=== PATIENT | male | born 1955 | race Caucasian/White ===

== ENCOUNTER 2016-09-18 10:36 | Day surgery (SDC) | payer OTHER ==
[2016-09-11 16:34] VITALS: BMI 25.7
[2016-09-18] MEDS ORDERED: ceFAZolin SODIUM 1 GM VIAL ONE (11:34)
[2016-09-18] MEDS ORDERED: LIDOCAINE 1%/EPI 1:100000 (50 ML MULTI DOSE VIAL) ONE (12:19)
[2016-09-18] MEDS ORDERED: BUPIVACAINE HCL/PF 0.5% (5MG/ML) 10 ML VIAL ONE (12:19)
[2016-09-18] MEDS ORDERED: BACITRACIN 30 GM TUBE TOPICAL OINTMENT ONE (12:24)
[2016-09-18] MEDS ORDERED: MIDAZOLAM HCL 2 MG/2 ML SINGLE DOSE VIAL ONE ×2 (12:29)
[2016-09-18] MEDS ORDERED: LIDOCAINE HCL/PF 2% SDV 5ML VIAL ONE (12:29)
[2016-09-18] MEDS ORDERED: PROPOFOL 20 ML ONE ×2 (12:29→12:40)
[2016-09-18] MEDS ORDERED: ceFAZolin SODIUM 1 GM VIAL IVPB ONE (13:00)
[2016-09-18] MEDS ORDERED: ePHEDrine SULFATE 50 MG/1 ML AMPULE ONE (14:08)
[2016-09-18] MEDS ORDERED: BACITRACIN 30 GM TUBE TOPICAL OINTMENT TP ONE (14:30)
[2016-09-18] MEDS ORDERED: ONDANSETRON 4 MG/2 ML VIAL ONE (15:02)
[2016-09-18] MEDS ORDERED: METHOCARBAMOL 750 MG TABLET PO PRN (15:09)
[2016-09-18] MEDS ORDERED: HYDROCHLOROTHIAZIDE PO SCH (15:15)
[2016-09-18] MEDS ORDERED: [UNRECOGNIZED DRUG - OTHER] PO SCH (15:15)
[2016-09-18] MEDS ORDERED: FELODIPINE 10 MG PO SCH (15:15)
[2016-09-18] MEDS ORDERED: QUINAPRIL PO SCH (15:15)
[2016-09-18] MEDS ORDERED: OXYCODONE/APAP 5/325MG COMBO TABLET PO PRN (15:19)
[2016-09-18] MEDS ORDERED: oxyCODONE HCL 5 MG TABLET PO PRN (15:30)
[2016-09-18] MEDS ORDERED: PROMETHAZINE HCL 25 MG/1 ML VIAL IVPUSH PRN (15:30)
[2016-09-18] MEDS ORDERED: ONDANSETRON 4 MG/2 ML VIAL IVPUSH PRN (15:30)
[2016-09-18] MEDS: GABAPENTIN 100 MG CAPSULE (FP) PO SCH ×2 (17:20→22:01)
--- NOTE | 2016-09-18 18:16 | HP ---
DATE OF ADMISSION: 09/18/2016 REASON FOR SURGERY TODAY: Open wound of the right 5th finger, postsurgical loss of skin. Patient to undergo debridement, flap coverage of exposed flexor tendons and skin grafting scheduled at [facility] September 18, 2016. PAST HISTORY: As per the patient, he had suffered from Dupuytren's contracture related to his right hand, involving his 5th finger and palm. He underwent 1st surgery approximately 4 to 5 years ago. At that time, he had a release of the contracture and, as per Los, it was successful. His finger had straightened up and he was able to use it. Dupuytren's condition then reoccurred and he started developing the same contracture in his finger. He underwent surgery on July 18, 2016, by Dr. Mckeon. Postoperatively he suffered complication, there was loss of skin at the level of the proximal finger, with exposure of his flexor tendons. He was then referred to the wound clinic, where he had undergone significant wound care including hyperbaric oxygen, which was permitted for a short time period. Patient is now here for closure and reconstruction of his 5th finger. His past history is relevant for the following condition: Fifteen years ago he had an CA and has been on medications. He does have history of hypertension, hypercholesterolemia, and diabetes. History of surgery is a quadruple bypass 16 years ago and surgery for Dupuytren's contraction as mentioned above. SOCIAL HISTORY: He is a former smoker. He has just recently stopped smoking since the complication occurred and has not taken cigarette since then. No history of alcohol abuse or drug usage. PHYSICAL EXAMINATION: General: A 60-year-old male, apparently in good health, not in pain, and is afebrile. Eyes: Pupils are equal and reacting. Neck: No lymphadenopathy. Chest: Good air entry. Abdomen: Soft and nontender. Extremities: Local examination of the 5th finger shows a 2.5 x 1.8 cm open wound located on the ulnar aspect of his 5th finger with exposed tendons which are showing some amount of granulation tissue since hyperbaric treatment had been started. The open wound is full thickness, extends down to the level of his phalanx. At the moment, there is no induration, no erythema, no foul odor. Previous cultures done in the wound clinic are positive for multiple organisms. PLAN OF CARE: Debridement of tissues including the granulation tissue followed by coverage of the tendon using a local flap from the finger, split-thickness skin grafting for the donor site. This is planned under IV sedation. KOURTNEY KEN M.D. [id number]
[2016-09-18] MEDS: oxyCODONE HCL 5 MG TABLET PO PRN (20:41)
[2016-09-18] MEDS: ACETAMINOPHEN 325 MG TABLET (FP) PO PRN (20:42)
[2016-09-18] MEDS ORDERED: CEFAZOLIN 1 GM/D5W 50 ML IVPB SCH (21:00)
[2016-09-18] MEDS: METOPROLOL SUCCINATE 50 MG TAB.SR.24H (FP) PO SCH (22:01)
[2016-09-18] MEDS: CEFAZOLIN (PRE-DOCKED) 50 ML IVPB SCH (22:02)
[2016-09-19] MEDS: oxyCODONE HCL 5 MG TABLET PO PRN ×3 (00:34→13:27)
[2016-09-19] MEDS: ACETAMINOPHEN 325 MG TABLET (FP) PO PRN ×3 (00:34→13:28)
[2016-09-19] MEDS: CEFAZOLIN (PRE-DOCKED) 50 ML IVPB SCH ×2 (03:50→09:33)
[2016-09-19 06:12] VITALS: BP 147/89; PULSE 71; TEMP 98.3
[2016-09-19] MEDS: METOPROLOL SUCCINATE 50 MG TAB.SR.24H (FP) PO SCH (06:16)
[2016-09-19] MEDS ORDERED: sitaGLIPtin PHOSPHATE 50 MG TABLET PO SCH (07:00)
--- NOTE | 2016-09-19 09:04 | PN ---
Progress Note (short form) - Note Progress Note: Post op day#1.S/P Right 5th finger tendon repair under [place] uneventful.Patient stable.No any anesthesia related problem.Patient dc from the anesthesia care.
[2016-09-19] MEDS: GABAPENTIN 100 MG CAPSULE (FP) PO SCH (09:33)
[2016-09-19] MEDS ORDERED: amLODIPine BESYLATE 5 MG TABLET (FP) PO SCH (10:00)
--- NOTE | 2016-09-19 13:56 | OP ---
DATE OF OPERATION: 09/18/2016 PREOPERATIVE DIAGNOSIS: 1. Open wound, right 5th finger. 2. Exposed flexor tendons. 3. He is status post Dupuytrens release contracture with skin necrosis. PROCEDURES DONE: 1. Excisional debridement of the skin, subcutaneous tissue, granulation tissue. 2. Reconstruction of the 5th finger with local flap. 3. Split thickness skin graft. 4. Tenolysis of the flexor superficialis. SURGEON: Kourtney Ken MD ANESTHESIA: General and 1% lidocaine with epinephrine with Marcaine. HISTORY: Patient is a right hand dominant male, a 60-year-old, with an open defect on volar aspect of the right 5th finger at the MP level and the proximal phalanx. Patient had undergone release of Dupuytrens contracture on July 18. Post surgery, there was skin necrosis with exposure of his tendon. Patient was then seen in the wound clinic after his referral. He received hyperbaric treatment for a few days and is now being taken for reconstructive and coverage of the tendons and the wound. PROCEDURE: Patient was brought to the operating room. Procedure had been explained to him prior in the wound clinic as well as in the holding area. Informed consent had been taken. General anesthesia was administered, in the beginning, 1% lidocaine with epinephrine with 0.25 Marcaine was injected, and in the volar aspect, after time-out had been carried out and agreed on. Right hand was washed and cleaned with Betadine soaked in solution and then draped in a standard and aseptic manner. Surgery was performed under loupe magnification of 2.5. A 15 blade was used for excisional debridement of the open wound which measured 2.5 x 1.5 x 0.5 cm with flexor profundus completely exposed. (Patient requested not to sacrifice the tendon.) Excisional debridement was also carried out on the hypertrophic granulation tissue covering the flexor profundus as well as the distal phalanx and including digital vessels. This was sent for pathology. Following excisional debridement, tenolysis was carried out of the flexor superficialis tendon. Flaps were dissected on radial and ulnar aspects to expand the contracted tissue and replace tendon in this position. Flap was then designed on the dorsal aspect of the proximal phalanx of the middle finger, and it was elevated in the subcutaneous level, transferred over to the proximal phalanx on the 5th finger, where it was stabilized using 5-0 interrupted Prolene sutures. Donor defect was covered with a split thickness skin graft taken from the dorsum of his right hand and thenar area. Graft was also stabilized using 5-0 Prolene. Circulation to the flap was satisfactory. Both the donor area and the recipient area were covered with Xeroform, bacitracin, 2x2s, and Klings were applied. Both fingers were putty splinted and wrapped with 4x4s and Edith. Estimated blood loss less than 10 mL. Patient received a gram of Ancef prior to surgery. He will be kept for 23 hours for IV antibiotics. Instrument and suture counts were correct at the end. He was then extubated and sent to recovery room in a satisfactory condition. KOURTNEY KEN M.D. [id number]
--- NOTE | 2016-09-21 09:27 | PATH ---
Surgical Pathology Report Patient Name: DANIELLE DIAZ Med. Rec. #: [id number] /Age/Gender: 1955 (Age: 60) / M Account: [id number] Location: AMBULATORY SURG Taken: 09/18/2016 Received: 09/19/2016 Reported: 09/21/2016 Physicians: Jacque England M.D. Specimen(s) Received A: DEBRIDEMENT TISSUE RIGHT 5TH FINGER B: RIGHT 5TH FINGER TISSUE NEAR NEUROVASCULAR BUNDLE Clinical History Wound right fifth finger Final Diagnosis A. SKIN AND SOFT TISSUE, RIGHT FIFTH FINGER, DEBRIDEMENT: SKIN WITH ULCERATION, AND SOFT TISSUE WITH INFLAMED GRANULATION TISSUE WITH AREAS OF NECROSIS. B. SOFT TISSUE, RIGHT FIFTH FINGER NEAR NEUROVASCULAR BUNDLE, EXCISION: BENIGN SKIN, FIBROUS TISSUE, ADIPOSE TISSUE, AND SYNOVIAL TISSUE WITH MILD NONSPECIFIC CHRONIC INFLAMMATION. SCANT PERIPHERAL NERVE TISSUE PRESENT. Comment: Also see [id number]. Electronically Signed Sky Anne M.D. Gross Description A. Received in formalin, labeled "right fifth finger debrided tissue," is a 1.8 x 1.5 x 0.2 cm aggregate of philippe skin fragments. The specimen is submitted in toto in one cassette. B. Received in formalin, labeled "right fifth finger tissue from neurovascular bundle," is a 1.0 x 0.7 x 0.1 cm philippe, irregular portion of soft tissue which is submitted in toto in one cassette. 09/19/2016 saudi09/19/2016
== END 2016-09-19 14:20 | disposition home or self-care (01) ==
LOC: JASU-SURG 10:36 → JASUSAT 10:36 → J6S 16:25 → JASUSAT 09-19 14:20
PROVIDERS: ATTEND Plastic Surgery
PROC: 0HRFX74 Replacement of Right Hand Skin with Autologous Tissue Substitute, Partial Thickness, External Approach (ICD-10-PCS; 2016-09-18)
PROC: 0HBFXZZ Excision of Right Hand Skin, External Approach (ICD-10-PCS; 2016-09-18)
PROC: 0LN70ZZ Release Right Hand Tendon, Open Approach (ICD-10-PCS; 2016-09-18)
PROC: 0JBJ0ZZ Excision of Right Hand Subcutaneous Tissue and Fascia, Open Approach (ICD-10-PCS; principal; 2016-09-18 12:00)
DX: S61.206D Unspecified open wound of right little finger without damage to nail, subsequent encounter (principal); S66.19 Other injury of flexor muscle, fascia and tendon of other and unspecified finger at wrist and hand level; X58.XXXD Exposure to other specified factors, subsequent encounter; L98.8 Other specified disorders of the skin and subcutaneous tissue
CPT/HCPCS: 88304-TC; 94760

== ENCOUNTER 2016-10-02 08:04 | Day surgery (SDC) | payer OTHER ==
[2016-09-28 18:05] VITALS: BMI 25.7
[2016-10-02] MEDS ORDERED: ceFAZolin SODIUM 1 GM VIAL ONE (10:10)
[2016-10-02] MEDS ORDERED: SODIUM CHLORIDE 0.9% P/F 10 ML VIAL IJ ONE (10:10)
[2016-10-02] MEDS ORDERED: KETOROLAC TROMETHAMINE 30 MG/1 ML VIAL ONE (10:10)
[2016-10-02] MEDS ORDERED: DEXAMETHASONE SOD PHOSPHATE 4 MG/1 ML VIAL ONE (10:10)
[2016-10-02] MEDS ORDERED: PROPOFOL 20 ML ONE ×4 (10:11→10:21)
[2016-10-02] MEDS ORDERED: MIDAZOLAM HCL 2 MG/2 ML SINGLE DOSE VIAL ONE ×2 (10:11→10:21)
--- NOTE | 2016-10-02 10:14 | HP ---
History & Physical Update - History History: No Change - Physical Physical: No Change - Assessment Assessment: No Change - Plan Plan: No Change
[2016-10-02] MEDS ORDERED: DESFLURANE GAS 240 ML BOTTLE IH ONE (10:15)
[2016-10-02] MEDS ORDERED: SODIUM BICARBONATE 8.4% - 50 ML ONE (10:24)
[2016-10-02] MEDS ORDERED: SUCCINYLCHOLINE CHLORIDE 200 MG/10 ML VIAL ONE (10:27)
[2016-10-02] MEDS ORDERED: ceFAZolin SODIUM 1 GM VIAL IVPB ONE (10:46)
[2016-10-02] MEDS ORDERED: BUPIVACAINE HCL/PF 0.25% (2.5MG/ML) 10 ML VIAL IJ ONE (10:49)
[2016-10-02] MEDS ORDERED: LIDOCAINE 1%/EPI 1:100000 (50 ML MULTI DOSE VIAL) INF ONE (10:49)
[2016-10-02] MEDS ORDERED: ePHEDrine SULFATE 50 MG/1 ML AMPULE ONE (11:22)
[2016-10-02] MEDS ORDERED: BACITRACIN 30 GM TUBE TOPICAL OINTMENT ONE (11:23)
[2016-10-02] MEDS ORDERED: BACITRACIN 30 GM TUBE TOPICAL OINTMENT TP ONE (11:34)
[2016-10-02] MEDS ORDERED: oxyCODONE HCL 5 MG TABLET PO PRN (11:54)
[2016-10-02] MEDS ORDERED: ONDANSETRON 4 MG/2 ML VIAL IVPUSH PRN (11:54)
[2016-10-02] MEDS ORDERED: LACTATED RINGERS SOLUTION 1,000 ML IV SCH (12:00)
[2016-10-02 12:48] VITALS: TEMP 97.7
[2016-10-02 13:42] VITALS: BP 145/72; PULSE 95
--- NOTE | 2016-10-02 17:35 | OP ---
DATE OF OPERATION: DATE OF DICTATION: 10/02/2016 PREOPERATIVE DIAGNOSIS:1. Status Post Cross finger flap.Right fifth finger 2 S/P skin graft Right Middle finger. 3. Sub cutaneous Pedicle POSTOPERATIVE DIAGNOSIS: Same. PROCEDURES DONE: 1. Detachment of the Cross finger-flap At 5th finger flap 2. In-setting of the flap at 5th finger Right . 3 Insetting of pedicle at 5th finger 4. Debridement of the exposed skin, subcutaneous tissue, and revision of the edges. SURGEON: Kourtney Ken M.D. ANESTHESIA: General. HISTORY: Patient is a 60-year-old diabetic male, has postoperative complications of exposed flexor tendons at the proximal phalanx, 5th finger. Dupytren contracture Procedure was performed in July of 2016. There was complete loss of full-thickness skin over the proximal phalynx with exposed flexor tendons. Los had undergone 1st stage procedure of cross finger flap coverage for exposed flexor tendons, this today procedure is 2nd stage , detachment of flap and Re-insetting of flap both at Fifth finger and donor Fourth finger. DESCRIPTION OF PROCEDURE: Patient was brought to the operating room. Procedure had been explained. All questions had been answered. At this time, general anesthesia was administered. Standard Time-out was called regarding the procedure, once agreed , local anesthetic was injected at the base of fifth finger, dorsum ring finger. Draping was done in a standard aseptic manner, Betadine prep was used. First Saline irrigation was carried out both fingers . On the volar aspect of his 5th finger, irrigated, curetted of the granulation tissue. Using 15 scalpel blade, flap was then detached on the radial aspect of his 5th finger good bleeding was noted from the cut end of flap. Insetting of incised end was done Interrupted sutures were applied., Flexor tendons were completely covered . 2nd part of the procedure was performed over the Ring finger (ulnar side). Transected edge was sutured after Skin graft edge was debrided . Repair 5 -0 prolene sutures. Circulation to the flap as well as both finger tips was satisfactory. Dressing consisting of Xeroform, bacitracin, and fluffs performed. Patient was then sent to recovery room after extubation in a satisfactory condition . Prior to starting the procedure, he was given 1 g of Ancef. At the end of the procedure, the instrument count was correct. KOURTNEY KEN M.D. [id number] MTDJames
--- NOTE | 2016-10-03 14:43 | PATH ---
Surgical Pathology Report Patient Name: DANIELLE DIAZ [facility]. Rec. #: [id number] /Age/Gender: 1955 (Age: 60) / M Account: [id number] Location: [facility] Taken: 10/02/2016 Received: 10/02/2016 Reported: 10/03/2016 Physicians: Jacque England M.D. Specimen(s) Received DEBRIDEMENT TISSUE RIGHT HAND Clinical History Status post cross finger flap right hand Final Diagnosis SKIN, RIGHT HAND, DEBRIDEMENT: SKIN WITH AREA OF ULCERATION, ALONG WITH KERATINOUS MATERIAL WITH ASSOCIATED FIBRINOPURULENT EXUDATE. Comment: Also see [id number]. Electronically Signed Sky Anne M.D. Gross Description Received in formalin, labeled "debrided tissue right hand," is a 0.9 x 0.8 x 0.1 cm aggregate of philippe jefferson soft tissue fragments. The specimen is entirely submitted in one cassette. 10/02/201610/02/2016
== END 2016-10-02 13:30 | disposition home or self-care (01) ==
LOC: JASU-SURG 08:04
PROVIDERS: ATTEND Plastic Surgery
PROC: 0JBJ0ZZ Excision of Right Hand Subcutaneous Tissue and Fascia, Open Approach (ICD-10-PCS; 2016-10-02)
PROC: 0H8 Skin and Breast, Division (ICD-10-PCS; principal; 2016-10-02 10:00)
DX: Z48.1 Encounter for planned postprocedural wound closure (principal); M67.843 Other specified disorders of tendon, right hand; L57.0 Actinic keratosis
CPT/HCPCS: 88304-TC; 94760